=== PATIENT | female | born 1975 | race Caucasian/White ===

== ENCOUNTER 2016-09-25 11:46 | Observation (INO) | payer OTHER ==
[2016-09-25 11:51] VITALS: BMI 47.0
--- NOTE | 2016-09-25 11:56 | PDOC ---
History of Present Illness - General Chief Complaint: Chest Pain Stated Complaint: CHEST PRESSURE Time Seen by Provider: 09/25/16 11:56 History Source: Patient Exam Limitations: No Limitations - History of Present Illness Initial Comments: 41 year old female with history of depression and paroxysmal Afib presenting with palpitations, left sided chest pressure, and shortness of breath that started yesterday while walking around [employer]. She has been worked up over the last few years for chest pain and palpitations with perfusion scans, echos, and regular stress tests that have all returned normal. She recently had a halter monitor placed by Dr. Smalls but he was not available for the patient to obtain the read. This time the chest pain is different because it has some radiation to the neck and shoulder with shortness of breath and lightheadedness. She has had three of these distinct pressure episodes with relief upon rest and exacerbation with movement. Denies nausea, vomiting, diarrhea, urinary symptoms, cough, or fever. Her PCP is Ankur Mariano. 09/25/16 14:09 09/25/16 15:19 Past History - Past Medical History Allergies/Adverse Reactions: Allergies Allergy/AdvReac Type Severity Reaction Status Date / Time Penicillins Allergy Intermediate Rash Verified 09/25/16 11:51 seafood Allergy Intermediate Hives Uncoded 09/25/16 11:51 Home Medications: Ambulatory Orders Paroxetine HCl 25 mg PO DAILY 02/14/15 Aspirin [Aspirin EC] 81 mg PO DAILY 09/25/16 L.acidoph,Paracasei, B.lactis [Probiotic] 1 each PO DAILY 09/25/16 Omeprazole 40 mg PO DAILY 09/25/16 Anemia: No Asthma: No Cancer: No Cardiac Disorders: No CVA: No COPD: No CHF: No Dementia: No Diabetes: No GI Disorders: No Disorders: No HTN: No Hypercholesterolemia: No Liver Disease: No Psychiatric Problems: Yes (DEPRESSION) Seizures: No Thyroid Disease: No - Surgical History Abdominal Surgery: Yes (HIATAL HERNIA) Cholecystectomy: Yes - Immunization History Immunization Up to Date: Yes - Psycho/Social/Smoking Cessation Hx Anxiety: No Suicidal Ideation: No Smoking Status: No Smoking History: Never smoked Have you smoked in the past 12 months: No Number of Cigarettes Smoked Daily: 0 Cigars Per Day: 0 Information on smoking cessation initiated: No Hx Alcohol Use: No Drug/Substance Use Hx: No Substance Use Type: None Hx Substance Use Treatment: No Review of Systems - Review of Systems Constitutional: No: Chills, Diaphoresis, Fever, Loss of Appetite HEENTM: No: Blurred Vision, Recent change in vision Respiratory: Yes: Shortness of Breath, SOB with Exertion. No: Cough, Orthopnea , SOB at Rest, Wheezing, Productive cough Cardiac (ROS): Yes: Chest Pain, Irregular Heart Rate, Lightheadedness, Palpitations. No: Edema, Syncope, Chest Tightness ABD/GI: No: Abdominal Distended, Constipated, Diarrhea, Nausea : No: Burning, Dysuria, Discharge Neurological: No: Headache, Numbness, Paresthesia *Physical Exam - Vital Signs Last Vital Signs Temp Pulse Resp BP Pulse Ox 98.2 F 92 H 18 143/76 96 09/25/16 11:47 09/25/16 11:47 09/25/16 11:47 09/25/16 11:47 09/25/16 11:47 - Physical Exam General Appearance: Yes: Nourished, Appropriately Dressed. No: Apparent Distress HEENT: positive: EOMI, JE, Normal ENT Inspection, Normal Voice. negative: Pharyngeal Erythema, Tonsillar Exudate, Tonsillar Erythema, Nasal Congestion, Rhinorrhea Neck: positive: Trachea midline, Normal Thyroid, Supple. negative: Tender, Rigid Respiratory/Chest: positive: Lungs Clear, Normal Breath Sounds. negative: Chest Tender, Respiratory Distress, Accessory Muscle Use Cardiovascular: positive: Regular Rhythm, Regular Rate, S1, S2. negative: Edema , JVD, Murmur Gastrointestinal/Abdominal: positive: Normal Bowel Sounds, Flat, Soft. negative : Tender, Organomegaly Rectal Exam: positive: deferred Extremity: positive: Normal Range of Motion. negative: Tender Integumentary: positive: Normal Color Neurologic: positive: Fully Oriented, Alert, Normal Mood/Affect ED Treatment Course - LABORATORY CBC & Chemistry Diagram: 09/25/16 13:00 09/25/16 13:00 Medical Decision Making - Medical Decision Making 41 year old with convincing cardiac story of angina vs. ACS but with previous history negative although the current symptoms are slightly different than previous. Will obtain CXR, troponin, EKG, CMP, CBC and give Aspirin as patient will most likely need admission for [facility] at this point. 09/25/16 14:18 09/25/16 15:19 All labs returned WNL and CXR without pathology but will admit for further Troponin rule out and potential LHC given story convincing for Angina (most likely stable, but possibly unstable). 09/25/16 16:29 *DC/Admit/Observation/Transfer Diagnosis at time of Disposition: Chest pain - Discharge Dispostion Admit: Yes - Attestations Physician Attestion: I, Dr. Adrianna Pacheco, attest that this document has been prepared under my direction and personally reviewed by me in its entirety. I further attest, that it accurately reflects all work, treatment, procedures and medical decision -making performed by me. 09/25/16 16:32
[2016-09-25] MEDS ORDERED: ASPIRIN 81 MG CHEWABLE TABLETS PO ONE (13:16)
[2016-09-25] MEDS ORDERED: ASPIRIN 81 MG CHEWABLE TABLETS ONE (13:25)
[2016-09-25 13:26] LABS: BASOPHIL 0.7 % (0-2.0); EOSINOPHIL 1.4 % (0-4.5); MCHC 33.2 g/dl (32.0-36.0); MEAN CELL VOLUME 81.3 fl (80-96); NEUTROPHILS 60.5 % (42.8-82.8); PLATELET COUNT 352 K/MM3 (134-434); RDW 15.3 % (11.6-15.6); WHITE BLOOD COUNT 9.9 K/mm3 (4.0-10.0)
[2016-09-25 13:36] LABS: ALBUMIN 2.9 g/dl (3.4-5.0); ANION GAP 7 (8-16); CALCIUM 8.9 mg/dL (8.5-10.1); CO2 25 mmol/L (21-32); CREATININE 0.7 mg/dL (0.55-1.02); GLUCOSE,RANDOM 91 mg/dL (74-106); SGPT/ALT 33 U/L (12-78)
--- NOTE | 2016-09-25 13:38 | PDOC ---
Attending Attestation - Resident Resident Name: TaraAdrianna - ED Attending Attestation I have performed the following: I have examined & evaluated the patient, The case was reviewed & discussed with the resident, I agree w/resident's findings & plan, Exceptions are as noted - HPI HPI: 09/25/16 13:34 41-year-old female with history of paroxysmal atrial fibrillation, but baseline sinus, morbid obesity presents with 3 episodes since last night of exertional chest pressure and palpitations and shortness of breath relieved with rest. - Physicial Exam PE: 09/25/16 13:35 Afebrile. Heart rate normal. Morbidly obese, otherwise comfortable Heart is regular without murmurs Lungs are clear trace edema bilaterally without calf tenderness - Medical Decision Making 09/25/16 13:35 Patient seen and evaluated with the resident. I agree with the overall evaluation, assessment, and management with the following summary of visit: 41-year-old female presents with exertional chest pain/dyspnea/palpitations since last night. Despite normal stress test earlier this year, presentation is concerning for unstable angina. Rule out other etiology such as anemia or metabolic disarray, lower suspicion for PE. Labs, urinalysis EKG, chest x-ray Aspirin Admission with cardiology consultation Heart Score/ECG Review #1 ECG reviewed & interpreted by me at: 11:56 General ECG Interpretation: Sinus Rhythm, Normal Rate (91), Normal Intervals ( qtc 445), No acute ischemic changes (unchanged Q in III)
--- NOTE | 2016-09-25 13:38 | EKG ---
Test Reason : Blood Pressure : / mmHG Vent. Rate : 091 BPM Atrial Rate : 091 BPM P-R Int : 168 ms QRS Dur : 084 ms QT Int : 362 ms P-R-T Axes : 058 034 033 degrees QTc Int : 445 ms NORMAL SINUS RHYTHM Q WAVES IN II III aVF,LESS THAN 0.[address] OF [address] SEGMENTS SLOW R WAVE PROGRESSION V1-V3 WHEN COMPARED WITH ECG OF 15-FEB-2015 10:59, DECREASE R WAVE VOLTAGE IN V3 CORELATE CLINICALLY Confirmed by MARY FERRER MD ([id number]) on 09/25/2016 1:38:07 PM Referred By: Confirmed By:MARY FERRER MD
[2016-09-25 13:39] LABS: ALK PHOS 81 U/L (45-117); BILIRUBIN,TOTAL 0.3 mg/dL (0.2-1.0); TOT PROT 7.2 g/dl (6.4-8.2); TROPONIN I < 0.02 ng/ml (0.00-0.05)
[2016-09-25 13:41] LABS: SGOT/AST 34 U/L (15-37)
[2016-09-25 22:04] LABS: TROPONIN I < 0.02 ng/ml (0.00-0.05)
[2016-09-26] MEDS ORDERED: ACETAMINOPHEN 325 MG TABLET (FP) PO PRN (02:06)
--- NOTE | 2016-09-26 08:20 | CON.CARD ---
Consult Consult Specialty:: Cardiology Referred by:: Dr. Loza Reason for Consultation:: chest pain and palpitations - History of Present Illness Chief Complaint: Chest pain History of Present Illness: 41 F office patient of ours since 2014 when she was diagnosed with PAF, completed course of AC and has been in NSR. Complains of 2 days of intermittent palpitations and episode SSCP (pressure) that occurred yesterday morning, lasted for about 15 minutes and provoked anxiety and SOB. Different than her GERD symptoms. No cough, fever, chills. No edema or leg pain. No PND, syncope. No recent travel. Thus far, tele NSR; ECG without change since 2014. Cardiac enzymes normal x 2; CXR ok. Recent treadmill stress and echo 06/2016 in office normal in prep for possible bariatric surgery. 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: Alzheimer's, CVA, Dementia, Migraine, Multiple Sclerosis, Peripheral Neuropathy, Parkinson's, Seizure, Syncope, TIA, Vertigo, Other Cardio/Vascular: Yes: AFIB (paroxysmal) Pulmonary: No: Asthma, Bronchitis, Cancer, COPD, O2 Dependent, Pneumonia, Previously Intubated, Pulmonary Embolus, Pulmonary Fibrosis, Sleep Apnea, Other Gastrointestinal: Yes: GERD (hiatal hernia) Hepatobiliary: No: Cirrhosis, Cholelithiasis, Cholecystitis, Choledocholithiasis , Hepatitis A, Hepatitis B, Hepatitis C, Other Renal/: No: Renal Failure, Renal Inusuff, BPH, Cancer, Hematuria, Hemodialysis , Neurogenic Bladder, Renal Calculi, UTI, Other Reproductive: No: Ectopic , Endometriosis, Fibroids, PID, Polycystic Ovary Syndrome, Postmenopausal, Other ...LMP: 09/14/16 ...: No Psych: Yes: Depression Musculoskeletal: No: Bursitis, Chronic low back pain, Hemiparesis, Hemiplegia, Osteoarthritis, Paraplegia, Other Rheumatology: No: Fibromyalgia, Gout, Lupus, Rheumatoid Arthritis, Sarcoidosis, Vasculitis, Other ENT: No: Allergic Rhinitis, Sinusitis, Other Endocrine: No: [place]'s Disease, [place]'s Disease, Diabetes Insipidus, Diabetes Mellitus, Hyperparathyroidism, Hyperthyroidism, Hypothyroidism, Osteopenia, SIADH, Other Dermatology: No: Basal Cell, Cellulitis, Eczema, Melanoma, Psoriasis, Squamous Cell, Other - Past Surgical History Past Surgical History: Yes: Cholecystectomy, - Alcohol/Substance Use Hx Alcohol Use: No - Smoking History Smoking history: Never smoked Have you smoked in the past 12 months: No Aproximately how many cigarettes per day: 0 - Social History ADL: Independent History of Recent Travel: No Home Medications - Allergies Allergies/Adverse Reactions: Allergies Allergy/AdvReac Type Severity Reaction Status Date / Time Penicillins Allergy Intermediate Rash Verified 09/25/16 11:51 seafood Allergy Intermediate Hives Uncoded 09/25/16 11:51 - Home Medications Home Medications: Ambulatory Orders Paroxetine HCl 25 mg PO DAILY 02/14/15 Aspirin [Aspirin EC] 81 mg PO DAILY 09/25/16 L.acidoph,Paracasei, B.lactis [Probiotic] 1 each PO DAILY 09/25/16 Omeprazole 40 mg PO DAILY 09/25/16 Family Disease History - Family Disease History Family Disease History: Heart Disease: Father (CAD and AF) Review of Systems Findings/Remarks: see HPI - Review of Systems Constitutional: reports: No Symptoms Eyes: reports: No Symptoms HENT: reports: No Symptoms Neck: reports: No Symptoms Cardiovascular: reports: Chest Pain, Palpitations Respiratory: reports: Other (chronic ARROYO) Gastrointestinal: denies: No Symptoms, Abdominal Pain, Bloating, Constipation, Diarrhea, Dysphagia, Indigestion, Melena, Nausea, Rectal Bleeding, Vomiting, Vomiting Blood, Other Genitourinary: denies: No Symptoms, Burning, Discharge, Dysuria, Flank Pain, Frequency, Hematuria, Incontinence, Lesions, Menses, Pain, Testicular Mass, Testicular Pain, Testicular Swelling, Urgency, Vaginal Bleeding, Other Breasts: denies: No Symptoms Reported, See HPI, Breast Implants, Discharge from Nipple, Lumps, Pain, Skin Changes, Other Musculoskeletal: denies: No Symptoms, Back Pain, Crepitus, Decreased ROM, Extremity Pain, Joint Pain, Joint Swelling, Muscle Pain, Muscle Cramps, Muscle Weakness, Other Neurological: denies: No Symptoms, Change in LOC, Change in Speech, Confusion, Dizziness, Headache, Incoordination, Numbness, Parasthesia, Pre-Existing Deficit , Seizure, Syncope, Tremors, Unsteady Gait, Weakness, Other Endocrine: denies: No Symptoms, Excessive Sweating, Flushing, Increased Hunger, Increased Thirst, Intolerance to Cold, Intolerance to Heat, Unexplained Weight Gain, Unexplained Weight Loss, Other Hematology/Lymphatic: denies: No Symptoms, Easily Bruised, Excessive Bleeding, Swollen Glands, Other Psychiatric: denies: No Symptoms, Altered Sleep Pattern, Anxiety, Depression, Hallucinations, Panic, Paranoia, Suicidal, Other - Risk Factors Known Risk Factors: Yes: Physical Inactivity Vital Signs: Vital Signs Temperature 98.1 F 09/26/16 07:53 Pulse Rate 74 09/26/16 07:53 Respiratory Rate 18 09/26/16 07:53 Blood Pressure 105/56 09/26/16 07:53 O2 Sat by Pulse Oximetry (%) 98 09/25/16 23:18 Constitutional: Yes: No Distress, Calm Eyes: Yes: Conjunctiva Clear, EOM Intact HENT: Yes: Atraumatic, Normocephalic Neck: Yes: Supple, Trachea Midline Respiratory: Yes: Regular, CTA Bilaterally Gastrointestinal: Yes: Soft, Abdomen, Obese Cardiovascular: Yes: Regular Rate and Rhythm JVD: No Carotid Bruit: No PMI: Non-Displaced Heart Sounds: Yes: S1, S2 (no murmurs) Musculoskeletal: Yes: WNL Extremities: Yes: WNL Edema: No (negative Suri's b/l) Peripheral Pulses WNL: Yes Integumentary: Yes: WNL Neurological: Yes: WNL, Alert, Oriented ...Motor Strength: WNL Psychiatric: Yes: WNL, Alert, Oriented - Other Data Labs, Other Data: Laboratory Tests 09/25/16 09/25/16 09/25/16 13:00 13:00 21:26 WBC 9.9 Hct 38.3 Plt Count 352 Potassium 4.6 Creatinine 0.7 D Creatine Kinase 76 39 Troponin I < 0.02 < 0.02 NSR 91bpm, Poor R wave progression Inferior Qs, unchanged from 2015 Echo: Report Reviewed (2017 office, normal) Ejection Fraction %: LVEF > or = 40 % Imaging - Results Chest X-ray: Image Reviewed EKG: Image Reviewed Problem List - Problems (1) Chest pain Code(s): R07.9 - CHEST PAIN, UNSPECIFIED Qualifiers: Chest pain type: unspecified Qualified Code(s): R07.9 - Chest pain, unspecified (2) GERD (gastroesophageal reflux disease) Code(s): K21.9 - GASTRO-ESOPHAGEAL REFLUX DISEASE WITHOUT ESOPHAGITIS Qualifiers: Esophagitis presence: without esophagitis Qualified Code(s): K21.9 - Gastro-esophageal reflux disease without esophagitis (3) Palpitation Code(s): R00.2 - PALPITATIONS (4) Paroxysmal a-fib Code(s): I48.0 - PAROXYSMAL ATRIAL FIBRILLATION Assessment/Plan IMP: Atypical chest pain and palpitations in patient with PAF and low CHADS2-Vasc score Obesity Family history of CAD REC: Continue telemetry through this evening to assess for recurrent AF Echo to rule out pericardial disease, assess PA pressure Plan stress MIBI this morning. If stress test WNL and tele unremarkable, acceptable for discharge later today on ASA with plan to f/u with Dr. Cuellar next week.
[2016-09-26 09:17] LABS: TROPONIN I < 0.02 ng/ml (0.00-0.05)
[2016-09-26] MEDS ORDERED: PARoxetine HCL 20 MG TABLET (FP) PO SCH (10:00)
[2016-09-26] MEDS ORDERED: ASPIRIN COATED 81 MG TABLET.EC PO SCH (10:00)
[2016-09-26] MEDS ORDERED: PANTOPRAZOLE 40 MG TABLET (FP) PO SCH (10:00)
[2016-09-26] MEDS ORDERED: HEPARIN NA (PORCINE) 5,000 UNITS/ML 1ML VIAL SQ SCH (10:00)
[2016-09-26 14:22] VITALS: BP 130/72; PULSE 79; TEMP 98.2
--- NOTE | 2016-09-26 16:34 | HP ---
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: Alzheimer's, CVA, Dementia, Migraine, Multiple Sclerosis, Peripheral Neuropathy, Parkinson's, Seizure, Syncope, TIA, Vertigo, Other Cardiovascular: Yes: AFIB (paroxysmal) Pulmonary: No: Asthma, Bronchitis, Cancer, COPD, O2 Dependent, Pneumonia, Previously Intubated, Pulmonary Embolus, Pulmonary Fibrosis, Sleep Apnea, Other Gastrointestinal: Yes: GERD (hiatal hernia) Hepatobiliary: No: Cirrhosis, Cholelithiasis, Cholecystitis, Choledocholithiasis , Hepatitis A, Hepatitis B, Hepatitis C, Other Renal/: No: Renal Failure, Renal Inusuff, BPH, Cancer, Hematuria, Hemodialysis , Neurogenic Bladder, Renal Calculi, UTI, Other ...LMP: 09/14/16 ...: No Psych: Yes: Depression Musculoskeletal: No: Bursitis, Chronic low back pain, Hemiparesis, Hemiplegia, Osteoarthritis, Paraplegia, Other Rheumatology: No: Fibromyalgia, Gout, Lupus, Rheumatoid Arthritis, Sarcoidosis, Vasculitis, Other ENT: No: Allergic Rhinitis, Sinusitis, Other Endocrine: No: [place]'s Disease, [place]'s Disease, Diabetes Insipidus, Diabetes Mellitus, Hyperparathyroidism, Hyperthyroidism, Hypothyroidism, Osteopenia, SIADH, Other Dermatology: No: Basal Cell, Cellulitis, Eczema, Melanoma, Psoriasis, Squamous Cell, Other - Past Surgical History Past Surgical History: Yes: Cholecystectomy, - Smoking History Smoking history: Never smoked Have you smoked in the past 12 months: No Aproximately how many cigarettes per day: 0 - Alcohol/Substance Use Hx Alcohol Use: No - Social History ADL: Independent History of Recent Travel: No Home Medications - Allergies Allergies/Adverse Reactions: Allergies Allergy/AdvReac Type Severity Reaction Status Date / Time Penicillins Allergy Intermediate Rash Verified 09/25/16 11:51 seafood Allergy Intermediate Hives Uncoded 09/25/16 11:51 - Home Medications Home Medications: Ambulatory Orders Paroxetine HCl 25 mg PO DAILY 02/14/15 Aspirin [Aspirin EC] 81 mg PO DAILY 09/25/16 L.acidoph,Paracasei, B.lactis [Probiotic] 1 each PO DAILY 09/25/16 Omeprazole 40 mg PO DAILY 09/25/16 Family Disease History - Family Disease History Family Disease History: Heart Disease: Father (CAD and AF) Physical Examination Vital Signs: Vital Signs Temperature 98.2 F 07/26/17 14:21 Pulse Rate 79 09/26/16 14:21 Respiratory Rate 18 09/26/16 14:21 Blood Pressure 130/72 09/26/16 14:21 O2 Sat by Pulse Oximetry (%) 99 09/26/16 08:00
--- NOTE | 2016-10-02 13:41 | EKG ---
Test Reason : Blood Pressure : / mmHG Vent. Rate : 093 BPM Atrial Rate : 093 BPM P-R Int : 160 ms QRS Dur : 086 ms QT Int : 352 ms P-R-T Axes : 044 051 046 degrees QTc Int : 437 ms NORMAL SINUS RHYTHM CANNOT RULE OUT INFERIOR INFARCT (CITED ON OR BEFORE 25-SEP-2016) SLOW R WAVE PROGRESSION V1-V3 ABNORMAL ECG WHEN COMPARED WITH ECG OF 25-SEP-2016 11:56, NO MAJOR CHANGES SEEN CLINICAL CORRELATION IS RECOMMENDED Confirmed by MARY FERRER MD ([id number]) on 10/02/2016 1:41:07 PM Referred By: Confirmed By:MARY FERRER MD
== END 2016-09-26 17:20 | disposition home or self-care (01) ==
LOC: JER 11:46 → UNDOADMOB 16:21 → JERBED 16:21 → J4W 23:01 → JERBED 23:01 → OBSVTOIN 09-26 02:03 → J4W 09-26 02:03 → INTOOBSV 09-26 02:03 → JERBED 09-26 02:03
PROVIDERS: ADMIT Internal Medicine; ATTEND Internal Medicine
PROC: 3E013GC Introduction of Other Therapeutic Substance into Subcutaneous Tissue, Percutaneous Approach (ICD-10-PCS; principal; 2016-09-26)
DX: R07.9 Chest pain, unspecified (principal); I48.0 Paroxysmal atrial fibrillation; K21.9 Gastro-esophageal reflux disease without esophagitis; R00.2 Palpitations; F32.9 Major depressive disorder, single episode, unspecified; E66.01 Morbid (severe) obesity due to excess calories; Z68.42 Body mass index [BMI] 45.0-49.9, adult; Z88.0 Allergy status to penicillin; Z91.013 Allergy to seafood; Z79.82 Long term (current) use of aspirin
CPT/HCPCS: 36415; 71010-TC; 76705-TC; 78452-TC; 80053; 82550; 84484; 84703; 85025; 93005; 93010; 93017; 93306-TC; 99285-25; A9502; G0378; J1644

== ENCOUNTER → 2016-10-25 | Day surgery (SDC) | payer OTHER ==
[2016-10-24 11:27] VITALS: BMI 45.4
[~2016-10-25] MED LIST: LIDOCAINE HCL 1%, 10 MG/ML (20ML VIAL) ONE; LIDOCAINE HCL 2% (50ML VIAL) INF ONE; LIDOCAINE HCL/PF 2% SDV 5ML VIAL ONE
[2016-10-25 06:41] VITALS: TEMP 98.7
--- NOTE | 2016-10-25 08:20 | OP ---
Operative Note - Note: Operative Date: 10/25/16 Pre-Operative Diagnosis: palpitations Operation: implantable loop recorder implant Implants: medtronic linq implantable loop recorder Surgeon: Titi Lomeli V Anesthesia: Local Estimated Blood Loss (mls): 1 Operative Report Dictated: Yes
[2016-10-25 08:59] VITALS: BP 131/76; PULSE 68
--- NOTE | 2016-10-27 11:07 | OP ---
DATE OF OPERATION: 10/25/2016 PROCEDURE: Implantable loop recorder implant. SURGEON: Donell Lomeli MD COMPLICATIONS: None. BLOOD LOSS: Minimal. INDICATION: This is a 41-year-old female with past medical history of paroxysmal atrial fibrillation, BAM on CPAP, with palpitations and negative workup, unable to tolerate patch monitoring due to skin allergies, here for an implantable loop recorder implantation for further monitoring. The patient met standard criteria for implantation of implantable loop recorder for further monitoring of recurrent palpitations. Informed consent was obtained, and adequate time for questions and answers was offered to the patient prior to the procedure. DESCRIPTION OF PROCEDURE: The left infraclavicular and anterior chest region were prepped and broadly draped. Local anesthesia was administered. Following the administration of local anesthesia, an incision was made at the fourth intercostal space in the left chest area. Using the implantable loop recorder tools, the [employer] LINQ serial number [id number] was successfully implanted in the left anterior chest region in the fourth intercostal space in a horizontal direction. Proper sensing function of the device was confirmed at 0.44 mV. The incision was then closed using absorbable sutures and Dermabond. A sterile bandage was also applied. The patient was then transported to the post-procedure monitoring area for additional observation. DONELL LOMELI M.D. [id number] cc: Aryan Cuellar MD
== END | disposition home or self-care (01) ==
LOC: JASU-SURG 06:10
PROVIDERS: ATTEND Internal Medicine
PROC: 0JH602Z Insertion of Monitoring Device into Chest Subcutaneous Tissue and Fascia, Open Approach (ICD-10-PCS; principal; 2016-10-25 07:30)
DX: R00.2 Palpitations (principal)

== ENCOUNTER 2017-03-14 16:51 | Emergency (ER) | payer OTHER ==
[2017-03-14 17:20] VITALS: BP 137/74; PULSE 89; TEMP 99.1; BMI 43.8
--- NOTE | 2017-03-14 18:51 | PDOC ---
History of Present Illness - General History Source: Patient Exam Limitations: No Limitations - History of Present Illness Initial Comments: 03/14/17 19:04 Chief Complaint: Cough History of Present Illness: The patient is a 41 year old female presents to the ER with complaints of worsening cough since Saturday. She states that the cough is non-productive and is associated with some chest pain and mild shortness of breath. She complains of a post nasal drip as well. She states her pain is worsened with deep inspiration. She also complains of a post nasal drip. The patient adds that on Saturday she was having severe abdominal cramping that persisted for a few days but has since gone away. Review of Systems: Patient denies any associated symptoms including fever, but reports chills and body aches. She denies any nausea, vomiting, diarrhea. She denies any palpitations currently. She denies any urinary symptoms. Past Medical History: She is under investigation for a suspected heart condition. States she has a chip implantation done in December to monitor her heart. Also has GERD. Social/Family History: Denies drugs, alcohol, or tobacco. Fully active without disability. Physical Exam: Alert and cooperative, in no distress. Denied any pain or other symptoms at present. PEERLA and fundus optic exam was negative. ENT clear. Neck supple without mass. Lungs clear to PNA despite mild cough, full breath sounds bilaterally, no wheezes, rales or rhonchi. Cardiac controlled rate and regular rhythm. No murmurs rubs or gallops, pulses full and symmetric. Abdomen was soft and nontender without rebound or guarding. No organomegaly or masses. Neurologically intact. cranial nerves 2-12 in tact, no focal deficits, numbness or weakness <Debbie Paulino - Last Filed: 03/14/17 19:04> <Parag Laura - Last Filed: 03/15/17 09:09> - General Chief Complaint: Respiratory Stated Complaint: COUGH X 1 WEEK Time Seen by Provider: 03/14/17 18:06 Past History <Debbie Paulino - Last Filed: 03/14/17 19:04> - Past Medical History Anemia: No Asthma: No Cancer: No Cardiac Disorders: Yes (PAF, IMPLANTED LOOP RECORDER HEART MONITOR) CVA: No COPD: No CHF: No Dementia: No Diabetes: No GI Disorders: No Disorders: No HTN: No Hypercholesterolemia: No Liver Disease: No Psychiatric Problems: Yes (DEPRESSION) Seizures: No Thyroid Disease: No - Surgical History Abdominal Surgery: Yes (HIATAL HERNIA) Appendectomy: No Cardiac Surgery: No Cholecystectomy: Yes Lung Surgery: No Neurologic Surgery: No Orthopedic Surgery: No - Immunization History Immunization Up to Date: Yes - Suicide/Smoking/Psychosocial Hx Smoking Status: No Smoking History: Never smoked Have you smoked in the past 12 months: No Number of Cigarettes Smoked Daily: 0 Cigars Per Day: 0 Hx Alcohol Use: No Drug/Substance Use Hx: No Substance Use Type: None Hx Substance Use Treatment: No <Parag Laura - Last Filed: 03/15/17 09:09> - Past Medical History Allergies/Adverse Reactions: Allergies Allergy/AdvReac Type Severity Reaction Status Date / Time Penicillins Allergy Intermediate Rash Verified 10/25/16 06:27 seafood Allergy Intermediate Hives Uncoded 10/25/16 06:27 Home Medications: Ambulatory Orders Paroxetine HCl 30 mg PO DAILY 02/14/15 L.acidoph,Paracasei, B.lactis [Probiotic] 1 each PO DAILY 09/25/16 Guaifenesin AC [Robitussin-AC] 1 - 2 tsp PO Q4HWA PRN #120 ml MDD 8 03/14/17 Oseltamivir Phosphate [Tamiflu] 75 mg PO BID #10 capsule 03/14/17 Review of Systems - Review of Systems Able to Perform ROS?: Yes All Other Systems: Reviewed and Negative <Debbie Paulino - Last Filed: 03/14/17 19:04> *Physical Exam - Vital Signs Last Vital Signs Temp Pulse Resp BP Pulse Ox 99.1 F 89 16 137/74 98 03/14/17 16:58 03/14/17 16:58 03/14/17 16:58 03/14/17 16:58 03/14/17 16:58 <Debbie Paulino - Last Filed: 03/14/17 19:04> - Vital Signs Last Vital Signs Temp Pulse Resp BP Pulse Ox 99.1 F 89 16 137/74 98 03/14/17 16:58 03/14/17 16:58 03/14/17 16:58 03/14/17 16:58 03/14/17 16:58 <Parag Laura - Last Filed: 03/15/17 09:09> Medical Decision Making - Medical Decision Making 03/15/17 09:09 Patient with flulike symptoms, does not appear acutely ill. No respiratory distress, tachypnea, or dyspnea. Symptomatic treatment and follow-up as recommended <Parag Laura - Last Filed: 03/15/17 09:09> *DC/Admit/Observation/Transfer - Attestations Scribe Attestion: 03/14/17 19:05 Documentation prepared by Debbie Paulino, acting as phlebotomist medical lab assistant for Parag El MD. <Debbie Paulino - Last Filed: 03/14/17 19:04> - Discharge Dispostion Admit: No <Parag Laura - Last Filed: 03/15/17 09:09> Diagnosis at time of Disposition: Viral syndrome - Discharge Dispostion Disposition: HOME Condition at time of disposition: - Prescriptions Prescriptions: Guaifenesin AC [Robitussin-AC] 1 - 2 tsp PO Q4HWA PRN #120 ml MDD 8 PRN Reason: Cough Oseltamivir Phosphate [Tamiflu] 75 mg PO BID #10 capsule - Referrals Referrals: Ankur Mariano MD [Primary Care Provider] - 3 days - Patient Instructions Printed Discharge Instructions: DI for Acute Bronchitis - Post Discharge Activity Forms/Work/School Notes: Back to Work
== END 2017-03-14 18:58 | disposition home or self-care (01) ==
LOC: FER 16:51
DX: B34.9 Viral infection, unspecified (principal); I51.9 Heart disease, unspecified; F32.9 Major depressive disorder, single episode, unspecified
CPT/HCPCS: 99281-25

== ENCOUNTER 2017-09-12 09:04 | Emergency (ER) | payer OTHER ==
[2017-09-12 09:21] VITALS: BP 129/80; PULSE 75; TEMP 98.3; BMI 43.8
[2017-09-12] MEDS ORDERED: TETANUS AND DIPHTHERIA TOXOID 0.5 ML DISP.SYRIN IM ONE (09:54)
--- NOTE | 2017-09-12 09:55 | PDOC ---
History of Present Illness - General Chief Complaint: Injury Stated Complaint: INJURY, NOSE BLEEDING Time Seen by Provider: 09/12/17 09:47 History Source: Patient, Parent(s) Exam Limitations: Clinical Condition - History of Present Illness Initial Comments: 09/12/17 09:55 Patient with no sig PMhx present with complains of laceration to bridge of nose and swelling under right eye after hitting herself with a door and glass shelve falling on her face cutting her nose. pt report swelling to nose and feeling that nose might be broken with swelling under right eye where she got hit hard. Denies vision changes, blurry vision, Lost of vision, feeling of foreign object in eye Timing/Duration: 1-3 hours Severity: mild Modifying Factors: improves with: cold therapy Associated Symptoms: reports: denies symptoms. denies: headaches Aspirin Received prior to arrival: Yes: no aspirin today Asa Contraindications(Core Measure): Yes: Allergy Beta Fco Contraindications(Core Measure): Yes: Not Prescribed Past History - Past Medical History Allergies/Adverse Reactions: Allergies Allergy/AdvReac Type Severity Reaction Status Date / Time Penicillins Allergy Intermediate Rash Verified 09/12/17 09:18 seafood Allergy Intermediate Hives Uncoded 09/12/17 09:18 Home Medications: Ambulatory Orders Paroxetine HCl 30 mg PO DAILY 02/14/15 L.acidoph,Paracasei, B.lactis [Probiotic] 1 each PO DAILY 09/25/16 Ibuprofen 800 mg PO TID PRN #20 tablet 09/12/17 Anemia: No Asthma: No Cancer: No Cardiac Disorders: Yes (PAF, IMPLANTED LOOP RECORDER HEART MONITOR) CVA: No COPD: No CHF: No DVT: No Dementia: No Diabetes: No GI Disorders: No Disorders: No HTN: No Hypercholesterolemia: No Liver Disease: No Psychiatric Problems: Yes (DEPRESSION) Seizures: No Thyroid Disease: No - Surgical History Abdominal Surgery: Yes (HIATAL HERNIA) Appendectomy: No Cardiac Surgery: No Cholecystectomy: Yes Lung Surgery: No Neurologic Surgery: No Orthopedic Surgery: No - Immunization History Immunization Up to Date: Yes - Suicide/Smoking/Psychosocial Hx Smoking Status: No Smoking History: Never smoked Have you smoked in the past 12 months: No Number of Cigarettes Smoked Daily: 0 Cigars Per Day: 0 Information on smoking cessation initiated: No Hx Alcohol Use: No Drug/Substance Use Hx: No Substance Use Type: None Hx Substance Use Treatment: No Review of Systems - Review of Systems Is the patient limited Urdu proficient: No Constitutional: No: Chills, Diaphoresis, Fever, Loss of Appetite, Malaise, Night Sweats, Weakness, Weight Stable, Unintentional Wgt. Loss, Unexplained wgt Loss, Other HEENTM: Yes: Nose Pain (nose pain over laceration and bridge of nose and right side of nose), Nose Bleeding (from laceration and facial contusion). No: Eye Pain, Blurred Vision, Tearing, Recent change in vision, Double Vision, Cataracts , Ear Pain, Ocular Prothesis, Ear Discharge, Nose Congestion, Tinnitus, Hearing Loss, Throat Pain, Throat Swelling, Mouth Pain, Dental Problems, Difficulty Swallowing, Mouth Swelling, Other Respiratory: No: Cough, Orthopnea, Shortness of Breath, SOB with Exertion, SOB at Rest, Stridor, Wheezing, Productive cough, Hemoptysis, Other Cardiac (ROS): No: See HPI, Chest Pain, Edema, Irregular Heart Rate, Lightheadedness, Palpitations, Syncope, Chest Tightness, Other ABD/GI: No: Abdominal Distended, Abd. Pain w/ defecation, Blood Streaked Bowels , Constipated, Diarrhea, Difficulty Swallowing, Nausea, Poor Appetite, Poor Fluid Intake, Rectal Bleeding, Vomiting, Indigestion, Abdominal cramping, Tarry Stools, Other : No: Burning, Dysuria, Discharge, Frequency, Flank Pain, Hematuria, Incontinence, Pain, Urgency, Testicular Mass, Testicular Swelling, Lesions, Testicular Pain, Other Musculoskeletal: Yes: Muscle Pain (bridge of nose). No: Back Pain, Gout, Joint Pain, Joint Swelling, Muscle Weakness, Neck Pain, Joint Stiffness, Other Integumentary: Yes: Erythema (bridge of nose). No: Bruising, Change in Color, Change in Hair/Nails, Dryness, Flushing, Lesions, Lumps, Pallor, Pruritus, Rash , Sweating, Other Neurological: No: Headache, Numbness, Paresthesia, Pre-Existing Deficit, Seizure , Tingling, Tremors, Weakness, Unsteady Gait, Ataxia, Dizziness, Other Psychiatric: No: Anxiety, Depression, Frequent Crying, Stressors, Sleep Pattern Change, Emotional Problems, Mood Swings, Change in Appetite, Other Endocrine: No: Excessive Sweating, Flushing, Intolerance to Cold, Intolerance to Heat, Increased Hunger, Increased Thirst, Increased Urine, Unexplained Weight Gain, Unexplained Weight Loss, Change in Weight, Other Hematologic/Lymphatic: No: Anemia, Blood Clots, Easy Bleeding, Easy Bruising, Bleeding Diathesis, Lymph Node Abnormalities, Swollen Glands, Other *Physical Exam - Vital Signs Last Vital Signs Temp Pulse Resp BP Pulse Ox 98.3 F 75 16 129/80 99 09/12/17 09:18 09/12/17 09:18 09/12/17 09:18 09/12/17 09:18 09/12/17 09:18 - Physical Exam General Appearance: Yes: Nourished, Appropriately Dressed. No: Apparent Distress HEENT: positive: EOMI, JE, Normal ENT Inspection (no acute bleeding from nostrils), Normal Voice, TMs Normal, Pharynx Normal, Orbits (mild swelling under right eye. EOMI b/l), Other (1cm superficial laceration with mild bleeding to bridge of nose) Neck: positive: Trachea midline, Supple Respiratory/Chest: positive: Lungs Clear, Normal Breath Sounds. negative: Chest Tender, Respiratory Distress Cardiovascular: positive: Regular Rhythm, Regular Rate Gastrointestinal/Abdominal: positive: Normal Bowel Sounds Musculoskeletal: positive: Other (mild swelling under right lower eyelid. mild tenderness over bridge of nose) Extremity: positive: Swelling (mild swelling under right eye), Other (1cm superficial laceration to bridge of nose with minimal bleeding) Integumentary: positive: Swelling (mild swelling under right lower eyelid), Other (1cm superficial laceration with minimal bleeding to bridge of nose) Neurologic: positive: Fully Oriented, Normal Mood/Affect, Normal Response Medical Decision Making - Medical Decision Making 09/12/17 10:06 Patient presenting with swelling under right eye with laceration to bridge of nose s/p facial contusion. no evidence of orbital fracture on exam. symptoms likely facial contusion with laceration. laceration closed with dermabond. tetanus vaccine ordered. facial x-rays ordered to r/o fracture. reassess after imaging 09/12/17 11:06 facial x-rays shows no acute fracture of facial bones. pt stable for home discharge with ophthalmology follow-up *DC/Admit/Observation/Transfer Diagnosis at time of Disposition: Facial contusion Qualifiers: Encounter type: initial encounter Qualified Code(s): S00.83XA - Contusion of other part of head, initial encounter Nasal laceration Qualifiers: Encounter type: initial encounter Qualified Code(s): S01.21XA - Laceration without foreign body of nose, initial encounter - Discharge Dispostion Disposition: HOME Condition at time of disposition: Good Decision to Admit order: No - Prescriptions Prescriptions: Ibuprofen 800 mg PO TID PRN #20 tablet PRN Reason: Pain - Referrals Referrals: Ankur Mariano MD [Primary Care Provider] - Ashanti Lala MD [Staff Physician] - - Patient Instructions Printed Discharge Instructions: DI for Eye Contusion, DI for Contusion Additional Instructions: Take medication as prescribed. follow-up with ophthalmology if swelling persist or change in vision - Post Discharge Activity
== END 2017-09-12 11:15 | disposition home or self-care (01) ==
LOC: JERFT 09:04
PROC: 3E0234Z Introduction of Serum, Toxoid and Vaccine into Muscle, Percutaneous Approach (ICD-10-PCS; principal; 2017-09-12)
PROC: 0HQ1XZZ Repair Face Skin, External Approach (ICD-10-PCS; 2017-09-12)
DX: S01.21XA Laceration without foreign body of nose, initial encounter (principal); S05.11XA Contusion of eyeball and orbital tissues, right eye, initial encounter; W22.8XXA Striking against or struck by other objects, initial encounter; Y93.89 Activity, other specified; Y92.89 Other specified places as the place of occurrence of the external cause; Y99.8 Other external cause status
CPT/HCPCS: 70150-TC-FY; 99281-25

== ENCOUNTER 2017-12-01 13:05 | Emergency (ER) | payer OTHER ==
[2017-12-01 13:24] VITALS: BMI 39.1
--- NOTE | 2017-12-01 13:56 | PDOC ---
History of Present Illness - General History Source: Patient - History of Present Illness Initial Comments: 12/01/17 14:02 42 year old female wtih a h/o arrhythmia (s/p PM placement) presents to ED c/o LUE injury. Patient states she was cooking in the kitchen when she tripped and hit her L arm on a knife that was sitting in a pot on the stove. Placed pressure dressing and presented to ED. Tetanus UTD. Allergy: Penicillin (hives) PMD: Dr. Ankur Mariano <Gaby Alvarado - Last Filed: 12/01/17 16:31> <Sid Miranda - Last Filed: 12/02/17 10:13> - General Chief Complaint: Injury Stated Complaint: LEFT ARM LACERATION Time Seen by Provider: 12/01/17 13:53 Past History - Past Medical History Anemia: No Asthma: No Cancer: No Cardiac Disorders: Yes (PAF, IMPLANTED LOOP RECORDER HEART MONITOR) CVA: No COPD: No CHF: No DVT: No Dementia: No Diabetes: No GI Disorders: No Disorders: No HTN: No Hypercholesterolemia: No Liver Disease: No Psychiatric Problems: Yes (DEPRESSION) Seizures: No Thyroid Disease: No - Surgical History Abdominal Surgery: Yes (HIATAL HERNIA) Appendectomy: No Cardiac Surgery: No Cholecystectomy: Yes Lung Surgery: No Neurologic Surgery: No Orthopedic Surgery: No - Immunization History Immunization Up to Date: Yes - Suicide/Smoking/Psychosocial Hx Smoking Status: No Smoking History: Never smoked Have you smoked in the past 12 months: No Number of Cigarettes Smoked Daily: 0 Cigars Per Day: 0 Hx Alcohol Use: No Drug/Substance Use Hx: No Substance Use Type: None Hx Substance Use Treatment: No <Gaby Alvarado - Last Filed: 12/01/17 16:31> <Sid Miranda - Last Filed: 12/02/17 10:13> - Past Medical History Allergies/Adverse Reactions: Allergies Allergy/AdvReac Type Severity Reaction Status Date / Time Penicillins Allergy Intermediate Rash Verified 12/01/17 13:24 seafood Allergy Intermediate Hives Uncoded 12/01/17 13:24 Home Medications: Ambulatory Orders Paroxetine HCl 30 mg PO DAILY 02/14/15 L.acidoph,Paracasei, B.lactis [Probiotic] 1 each PO DAILY 09/25/16 Review of Systems - Review of Systems Constitutional: No: Chills, Fever Respiratory: No: Cough, Shortness of Breath Cardiac (ROS): No: Chest Pain, Lightheadedness, Palpitations, Syncope ABD/GI: No: Constipated, Diarrhea, Nausea, Vomiting Neurological: No: Paresthesia, Tingling <Gaby Alvarado - Last Filed: 12/01/17 16:31> *Physical Exam - Vital Signs Last Vital Signs Temp Pulse Resp BP Pulse Ox 97 F L 79 18 130/78 99 12/01/17 13:20 12/01/17 13:20 12/01/17 13:20 12/01/17 13:20 12/01/17 13:20 - Physical Exam General Appearance: Yes: Nourished, Appropriately Dressed Neck: positive: Trachea midline, Supple Respiratory/Chest: positive: Lungs Clear. negative: Labored Respiration, Rapid RR Cardiovascular: positive: S1, S2 Extremity: positive: Normal Capillary Refill, Other (L forearm laceration - exposed muscle belly, NVI, tendons intact in R digits) Neurologic: positive: Fully Oriented, Alert <Gaby Alvarado - Last Filed: 12/01/17 16:31> - Vital Signs Last Vital Signs Temp Pulse Resp BP Pulse Ox 97.9 F 62 17 140/79 96 12/01/17 15:56 12/01/17 15:56 12/01/17 15:56 12/01/17 15:56 12/01/17 15:56 <RuthSid - Last Filed: 12/02/17 10:13> Procedures - Consent Consent obtained: Verbal - Laceration/Wound Repair Left Lateral Arm Wound Length: 5.0 to 7.5 cm Wound Explored: clean Wound's Depth, Shape: into muscle Irrigated w/ Saline: Yes Anesthesia: 1% Lidocaine Wound Debrided: minimal Wound Repaired With: Sutures Number of Sutures: 10 Layer Closure: Yes Number of Deep Layer Sutures: 4 Sterile Dressing Applied: Yes Progress: Note:7 cm Laceration anesthesized with cc of 2% lidocaine,thoroughly irrigated under pressure with,total of 4 deep dermal + 10 simple interrupted sutures placed,no complications,no foreign body noted,good hemostasis,good approximation ,pt neurovascularly intact s/p procedure,verbal consent given by pt/family,pt/ family aware of potential for scar formation. Initialized on 12/01/17 15:48 - END OF NOTE <Sid Miranda - Last Filed: 12/02/17 10:13> ED Treatment Course - Medications Given in the ED: ED Medications Discontinued Medications Generic Name Dose Route Start Last Admin Trade Name Lucy PRN Reason Stop Dose Admin Lidocaine HCl 400 mg 12/01/17 14:20 12/01/17 15:14 Xylocaine 2% DT 12/01/17 14:21 400 mg ONCE ONE Administration <Sid Miranda - Last Filed: 12/02/17 10:13> Medical Decision Making - Medical Decision Making 12/01/17 14:03 42 year old female with LUE laceration on ulnar aspect of L distal forearm approximately 7 cm in length - w/penetration in fascia of muscle belly. No ligament/tendon involvement on motor exam. NVI. Tetanus within 1 year. 12/01/17 15:54 Wound closed using 4 deep dermal sutures and 10 simple interrupted sutures. NVI pre and post wound closure. D/c home with return precautions and return to ED in 7 days for wound check and possible suture removal. <Gaby Alvarado - Last Filed: 12/01/17 16:31> *DC/Admit/Observation/Transfer - Discharge Dispostion Decision to Admit order: No <Gaby Alvarado - Last Filed: 12/01/17 16:31> <Sid Miranda - Last Filed: 12/02/17 10:13> Diagnosis at time of Disposition: Laceration - Discharge Dispostion Disposition: HOME Condition at time of disposition: Good - Patient Instructions Printed Discharge Instructions: DI for Laceration Repair Additional Instructions: Please return to the Emergency Department in 7 days for a wound check. Return to the Emergency Department before that time for loose sutures, redness, warmth, or discharge from your wound as well as any new/worsening/concerning symptoms.
[2017-12-01] MEDS ORDERED: LIDOCAINE HCL 2% (20ML MULTI-DOSE VIAL) NR ONE (14:14)
[2017-12-01] MEDS ORDERED: LIDOCAINE HCL 2% (50ML VIAL) DT ONE (14:20)
--- NOTE | 2017-12-01 14:26 | PDOC ---
Attending Attestation - Resident Resident Name: Gaby Alvarado - ED Attending Attestation I have performed the following: I have examined & evaluated the patient, The case was reviewed & discussed with the resident, I agree w/resident's findings & plan, Exceptions are as noted - HPI HPI: 12/01/17 14:23 42y F presents with L arm laceration. The patient states that she lost her balance while she was in the kitchen, reached out to stabilize herself and her left arm struck a knife that was pointing up out of a pot. The patient denies any numbness, tingling, weakness no other injuries, tetanus up-to-date. On exam the patient has a deep laceration in the ulnar aspect of her left distal forearm, it penetrates the fascia of her muscle belly, there is no signs of any ligamentous/tendon involvement on visual inspection, nor on motor evaluation of her fingers, there is no deficits in wrist extension supination, flexion, nor flexion and extension of her fingers which were all tested at each individual joint. Sensation was intact bilaterally. Will close the patient's laceration Tetanus already up-to-date Will give prophylactic antibiotics - Physicial Exam PE: 12/02/17 09:34 see above - Medical Decision Making the pts laceration was closed with good approximation by resident milton pt dc with pmd fu and return for suture removal signs of infetction discussed wit the patient.
[2017-12-01 15:57] VITALS: BP 140/79; PULSE 62; TEMP 97.9
== END 2017-12-01 15:54 | disposition home or self-care (01) ==
LOC: JER 13:05
PROC: 0JQH0ZZ Repair Left Lower Arm Subcutaneous Tissue and Fascia, Open Approach (ICD-10-PCS; principal; 2017-12-01)
DX: S51.812A Laceration without foreign body of left forearm, initial encounter (principal); W26.0XXA Contact with knife, initial encounter; W01.118A Fall on same level from slipping, tripping and stumbling with subsequent striking against other sharp object, initial encounter; Y93.G3 Activity, cooking and baking; Y92.030 Kitchen in apartment as the place of occurrence of the external cause; Y99.8 Other external cause status
CPT/HCPCS: 12032; 99282-25

== ENCOUNTER 2017-12-08 14:08 | Emergency (ER) | payer OTHER ==
[2017-12-08 14:17] VITALS: BP 117/70; PULSE 80; TEMP 97.6; BMI 39.1
--- NOTE | 2017-12-08 14:20 | PDOC ---
Suture Removal/Wound Check HPI - History of Present Illness Chief Complaint: Suture/Staple Removal(Here) Stated Complaint: STICHES REMOVAL LEFT ARM Time Seen by Provider: 12/08/17 14:17 History Source: Yes: Patient Exam Limitations: Yes: No Limitations Treated at: [facility] Date of Last ED visit: 12/01/17 - Previous ED Treatment Type of procedure performed on last visit: Yes: Laceration Repair Tetanus Immunization: Yes: Up to Date Past History - Past Medical History Allergies/Adverse Reactions: Allergies Allergy/AdvReac Type Severity Reaction Status Date / Time Penicillins Allergy Intermediate Rash Verified 12/01/17 13:24 seafood Allergy Intermediate Hives Uncoded 12/01/17 13:24 Home Medications: Ambulatory Orders Paroxetine HCl 30 mg PO DAILY 02/14/15 L.acidoph,Paracasei, B.lactis [Probiotic] 1 each PO DAILY 09/25/16 Anemia: No Asthma: No Cancer: No Cardiac Disorders: Yes (PAF, IMPLANTED LOOP RECORDER HEART MONITOR) CVA: No COPD: No CHF: No DVT: No Dementia: No Diabetes: No GI Disorders: No Disorders: No HTN: No Hypercholesterolemia: No Liver Disease: No Psychiatric Problems: Yes (DEPRESSION) Seizures: No Thyroid Disease: No - Surgical History Abdominal Surgery: Yes (HIATAL HERNIA) Appendectomy: No 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) Cholecystectomy: Yes Lung Surgery: No Neurologic Surgery: No Orthopedic Surgery: No - Immunization History Immunization Up to Date: Yes - Suicide/Smoking/Psychosocial Hx Smoking Status: No Smoking History: Never smoked Have you smoked in the past 12 months: No Number of Cigarettes Smoked Daily: 0 Cigars Per Day: 0 Information on smoking cessation initiated: No Hx Alcohol Use: No Drug/Substance Use Hx: No Substance Use Type: None Hx Substance Use Treatment: No *Physical Exam - Vital Signs Last Vital Signs Temp Pulse Resp BP Pulse Ox 97.6 F 80 20 117/70 100 12/08/17 14:14 12/08/17 14:14 12/08/17 14:14 12/08/17 14:14 12/08/17 14:14 Medical Decision Making - Medical Decision Making A/P: 42 y/o female here for suture removal. 9 sutures removed from left arm without difficulty. Pt admits the 10th stitch fell out on its own. Steri strips were applied. Wound margins well approximated. Patient instructed to keep area clean. The patient verbalizes understanding of all instructions, has no further questions and is awaiting discharge. *DC/Admit/Observation/Transfer Diagnosis at time of Disposition: Encounter for removal of sutures - Discharge Dispostion Disposition: HOME Condition at time of disposition: Good - Referrals - Patient Instructions Printed Discharge Instructions: DI for Suture Removal - Post Discharge Activity
== END 2017-12-08 14:42 | disposition home or self-care (01) ==
LOC: JERFT 14:08
DX: Z48.817 Encounter for surgical aftercare following surgery on the skin and subcutaneous tissue (principal); Z48.02 Encounter for removal of sutures
CPT/HCPCS: 99281-25

== ENCOUNTER 2018-09-16 13:49 | Inpatient (IN) | payer OTHER ==
--- NOTE | 2018-09-16 14:04 | PDOC ---
Rapid Medical Evaluation Chief Complaint: Chest Pain Time Seen by Provider: 09/16/18 13:56 Medical Evaluation: Allergies Allergy/AdvReac Type Severity Reaction Status Date / Time Penicillins Allergy Intermediate Rash Verified 09/16/18 13:56 seafood Allergy Intermediate Hives Uncoded 09/16/18 13:56 09/16/18 13:56 I have performed a brief in-person evaluation of this patient. The patient presents with a chief complaint of:CP w/ palpitations and "feels winded" x 5 days. No diaphoresis, n/v. leg pain or swelling. No obvious RF for DVT. Pt s/p insertable ekg monitor placed by partner of Dr Ojeda in 2017 for palpitations, depression on paxil Pertinent physical exam findings:Stable w/ clear chest/lungs I have ordered the following:ekg/cxr/labs The patient will proceed to the ED for further evaluation. Discharge Disposition - Diagnosis Chest pain Qualifiers: Chest pain type: unspecified Qualified Code(s): R07.9 - Chest pain, unspecified - Referrals - Patient Instructions - Post Discharge Activity
--- NOTE | 2018-09-16 14:40 | EKG ---
Test Reason : Blood Pressure : / mmHG Vent. Rate : 083 BPM Atrial Rate : 083 BPM P-R Int : 142 ms QRS Dur : 082 ms QT Int : 402 ms P-R-T Axes : 048 028 031 degrees QTc Int : 472 ms SINUS RHYTHM CANNOT RULE OUT ANTERIOR INFARCT (CITED ON OR BEFORE 25-SEP-2016) ABNORMAL ECG Confirmed by Kalyan Ac MD ([id number]) on 09/16/2018 2:40:18 PM Referred By: Confirmed By:Kalyan Ac MD
--- NOTE | 2018-09-16 14:41 | PDOC ---
History of Present Illness - General Chief Complaint: Chest Pain Stated Complaint: CHEST PAIN Time Seen by Provider: 09/16/18 13:56 - History of Present Illness Initial Comments: 09/16/18 16:05 HPI: 43 y/o F with hx of paroxysmal Afib s/p implantable loop recorder device in 2017 presenting with 4 days of chest palpitations/fluttering and 2 days of chest pressure. She reports on Saturday and throughout the weekend she felt intermittent fluttering in her chest that did not resolve. For the past 2 days she endorses that she is now having left sided chest pressure with radiation to her posterior left shoulder that she became worried about today because she never had that before. She rates it as a 5/10 and is intermittent in nature. She also endorses lightheadedness, nausea, increased diaphoresis, and lethargy over the weekend. Of note, she reports increased shortness of breath on exertion without any change in her palpitations or chest pressure on exertion. Denies fever, chills, emesis, abd pain, dysuria, diarrhea, constipation. PMHx: as noted above ROS: as noted SHx: Denies Etoh, IVDA, tobacco use Allergies: NKDA Past History - Past Medical History Allergies/Adverse Reactions: Allergies Allergy/AdvReac Type Severity Reaction Status Date / Time Penicillins Allergy Intermediate Rash Verified 09/16/18 13:56 seafood Allergy Intermediate Hives Uncoded 09/16/18 13:56 Home Medications: Ambulatory Orders Paroxetine HCl 30 mg PO DAILY 02/14/15 Anemia: No Asthma: No Cancer: No Cardiac Disorders: Yes (PAF, IMPLANTED LOOP RECORDER HEART MONITOR) CVA: No COPD: No CHF: No DVT: No Dementia: No Diabetes: No GI Disorders: No Disorders: No HTN: No Hypercholesterolemia: No Liver Disease: No Psychiatric Problems: Yes (DEPRESSION) Seizures: No Thyroid Disease: No - Surgical History Abdominal Surgery: Yes (HIATAL HERNIA) Appendectomy: No Cardiac Surgery: Yes (internal school lunch monitor) Cholecystectomy: Yes Lung Surgery: No Neurologic Surgery: No Orthopedic Surgery: No - Immunization History Immunization Up to Date: Yes - Suicide/Smoking/Psychosocial Hx Smoking Status: No Smoking History: Never smoked Have you smoked in the past 12 months: No Number of Cigarettes Smoked Daily: 0 Cigars Per Day: 0 Information on smoking cessation initiated: No Hx Alcohol Use: No Drug/Substance Use Hx: No Substance Use Type: None Hx Substance Use Treatment: No Review of Systems - Review of Systems Comments:: 09/16/18 17:01 GENERAL/CONSTITUTIONAL: No fever or chills. No weakness. HEAD, EYES, EARS, NOSE AND THROAT: No change in vision. No ear pain or discharge. No sore throat. CARDIOVASCULAR: +palpitations, chest pressure, and [place] RESPIRATORY: No cough, wheezing, or hemoptysis. GASTROINTESTINAL: + nausea; no vomiting, diarrhea or constipation. GENITOURINARY: No dysuria, frequency, or change in urination. MUSCULOSKELETAL: No joint or muscle swelling or pain. No neck or back pain. SKIN: No rash NEUROLOGIC: No headache, vertigo, loss of consciousness, or change in strength/ sensation. ENDOCRINE: No increased thirst. No abnormal weight change HEMATOLOGIC/LYMPHATIC: No anemia, easy bleeding, or history of blood clots. ALLERGIC/IMMUNOLOGIC: No hives or skin allergy. *Physical Exam - Vital Signs Last Vital Signs Temp Pulse Resp BP Pulse Ox 97.5 F L 80 16 139/85 98 09/16/18 13:56 09/16/18 13:56 09/16/18 13:56 09/16/18 13:56 09/16/18 13:56 - Physical Exam Comments: 09/16/18 17:04 GENERAL: Awake, alert, and fully oriented, in no acute distress HEAD: No signs of trauma, normocephalic, atraumatic EYES: PERRLA, EOMI, sclera anicteric, conjunctiva clear ENT: Auricles normal inspection, hearing grossly normal, nares patent, oropharynx clear without exudates. Moist mucosa NECK: Normal ROM, supple, no lymphadenopathy, JVD, or masses LUNGS: No distress, speaks full sentences, clear to auscultation bilaterally HEART: Regular rate and rhythm, normal S1 and S2, no murmurs, rubs or gallops, peripheral pulses normal and equal bilaterally. ABDOMEN: Soft, nontender, normoactive bowel sounds. No guarding, no rebound. No masses EXTREMITIES : Normal inspection, Normal range of motion, no edema. No clubbing or cyanosis. NEUROLOGICAL: Cranial nerves II through XII grossly intact. Normal speech, normal gait, no focal sensorimotor deficits SKIN: Warm, Dry, normal turgor, no rashes or lesions noted ED Treatment Course - LABORATORY CBC & Chemistry Diagram: 09/16/18 14:42 09/16/18 14:42 Medical Decision Making - Medical Decision Making 09/16/18 17:06 43 y/o F with hx of paroxysmal Afib s/p implantable loop recorder device in 2017 presenting with 4 days of chest palpitations/fluttering and 2 days of chest pressure associated with lethargy, lightheadedness, and dyspnea on exertion. -CBC, CMP, EKG, CXR -NS bolus 09/16/18 17:07 No significant findings on labs, EKG, CXR Patient still feels lightheaded Dr Ojeda was consulted and recommended admit for tele obs with ECHO in the AM Dr Loza accepted admission Awaiting bed 09/16/18 19:35 s/p 1L bolus lightheadedness has improved *DC/Admit/Observation/Transfer Diagnosis at time of Disposition: Chest pain Qualifiers: Chest pain type: unspecified Qualified Code(s): R07.9 - Chest pain, unspecified - Discharge Dispostion Condition at time of disposition: Stable Decision to Admit order: Yes - Referrals - Patient Instructions - Post Discharge Activity
[2018-09-16 15:16] LABS: BASO % 0.7 % (0-2.0); EOS % 1.6 % (0-4.5); HEMATOCRIT 35.4 % (32.4-45.2); HEMOGLOBIN 11.5 GM/dL (10.7-15.3); LYMPH % 42.5 % (8-40); MCH 26.6 pg (25.7-33.7); MCHC 32.6 g/dl (32.0-36.0); MEAN CELL VOLUME 81.5 fl (80-96); MEAN PLT VOLUME 7.3 fl (7.5-11.1); MONO % 8.5 % (3.8-10.2); NEUT % 46.7 % (42.8-82.8); PLATELET COUNT 491 K/MM3 (134-434); RBC 4.35 M/mm3 (3.60-5.2); RDW 15.3 % (11.6-15.6); WHITE BLOOD COUNT 8.5 K/mm3 (4.0-10.0)
[2018-09-16] MEDS ORDERED: SODIUM CHLORIDE 1,000 ML IV STA (15:38)
[2018-09-16 15:46] LABS: ALBUMIN 3.3 g/dl (3.4-5.0); BILIRUBIN,TOTAL 0.3 mg/dL (0.2-1); BLOOD UREA NITROGEN 14.8 mg/dL (7-18); CALCIUM 8.4 mg/dL (8.5-10.1); CREATININE 0.8 mg/dL (0.55-1.3); POTASSIUM 4.2 mmol/L (3.5-5.1); TOT PROT 7.2 g/dl (6.4-8.2)
--- NOTE | 2018-09-16 16:35 | PDOC ---
Documentation entered by Gregorio Nance SCRIBE, acting as scribe for Nataliia Franks MD. Nataliia Franks MD: This documentation has been prepared by the mahesheLee Ann Elijah, SCRIBE, under my direction and personally reviewed by me in its entirety. I confirm that the documentation accurately reflects all work, treatment, procedures, and medical decision making performed by me. Attending Attestation - Resident Resident Name: Cuate Mahan - ED Attending Attestation I have performed the following: I have examined & evaluated the patient, The case was reviewed & discussed with the resident, I agree w/resident's findings & plan, Exceptions are as noted - HPI HPI: 09/16/18 16:38 Patient is a 43 year old female with a significant past medical history of PAF who presents with palpitations lasting over x4 days. Patient has recently developed over the last day left sided chest pressure and associates Dyspnea on exertion and Lightheadedness. Her symptoms have all worsened today prompting her visit to the ED today. Allergies: Penicillins, Seafood PCP: Dr. Mariano - Physicial Exam PE: GENERAL: Awake, alert, and fully oriented, in no acute distress. Obese HEAD: No signs of trauma EYES: PERRLA, EOMI, sclera anicteric, conjunctiva clear ENT: Auricles normal inspection, hearing grossly normal, nares patent, oropharynx clear without exudates. Moist mucosa NECK: Normal ROM, supple, no lymphadenopathy, JVD, or masses LUNGS: Breath sounds equal, clear to auscultation bilaterally. No wheezes, and no crackles HEART: Regular rate and rhythm, normal S1 and S2, no murmurs, rubs or gallops ABDOMEN: Soft, nontender, normoactive bowel sounds. No guarding, no rebound. No masses EXTREMITIES: Normal range of motion, no edema. No clubbing or cyanosis. No cords, erythema, or tenderness NEUROLOGICAL: Cranial nerves II through XII grossly intact. Normal speech, normal gait. Motor and sensation intact SKIN: Warm, dry, normal turgor, no rashes or lesions noted. - Medical Decision Making Pt with L shoulder pain, lightheadedness, chest pressure. EKG with no acute findings. Case d/w cardiology Dr. Ojeda, recommended tele admit. Heart Score/ECG Review - History History: Moderately suspicious - Electrocardiogram EKG: Normal - Age Age: </= 45 - Risk Factors Risk Factors Heart Score: Yes Hx Obesity Based on the list above the patient has:: 1-2 risk factors - Troponin Troponin: </= normal limit - Score Heart Score - Total: 2
[2018-09-16 21:01] LABS: COCAINE, UR NEGATIVE ng/ml (CUTOFF=300); METHADONE, UR NEGATIVE ng/ml (CUTOFF=300); OPIATES, URI NEGATIVE ng/ml (CUTOFF=300); PHENCYCLIDINE,URINE NEGATIVE ng/ml (CUTOFF=25); URINE AMPHETAMINES NEGATIVE ng/ml (CUTOFF=500); URINE BARBITURATES NEGATIVE ng/ml (CUTOFF=200)
[2018-09-16 21:02] LABS: URINE BENZODIAZEPINES NEGATIVE ng/ml (CUTOFF=200)
[2018-09-16] MEDS ORDERED: ASPIRIN COATED 81 MG TABLET.EC ONE (21:59)
[2018-09-16] MEDS: ASPIRIN COATED 81 MG TABLET.EC PO SCH (22:04)
[2018-09-16 23:25] VITALS: BMI 38.3
[2018-09-17 06:40] LABS: BASO % 0.8 % (0-2.0); EOS % 2.8 % (0-4.5); HEMATOCRIT 33.6 % (32.4-45.2); HEMOGLOBIN 11.2 GM/dL (10.7-15.3); LYMPH % 51.3 % (8-40); MCH 27.1 pg (25.7-33.7); MCHC 33.3 g/dl (32.0-36.0); MEAN CELL VOLUME 81.4 fl (80-96); MEAN PLT VOLUME 6.9 fl (7.5-11.1); MONO % 8.7 % (3.8-10.2); NEUT % 36.4 % (42.8-82.8); PLATELET COUNT 442 K/MM3 (134-434); RBC 4.13 M/mm3 (3.60-5.2); RDW 14.8 % (11.6-15.6); WHITE BLOOD COUNT 7.2 K/mm3 (4.0-10.0)
[2018-09-17 06:41] LABS: ALBUMIN 2.8 g/dl (3.4-5.0); BILIRUBIN,TOTAL 0.5 mg/dL (0.2-1); BLOOD UREA NITROGEN 12.5 mg/dL (7-18); CREATININE 0.8 mg/dL (0.55-1.3); POTASSIUM 4.1 mmol/L (3.5-5.1); TOT PROT 6.5 g/dl (6.4-8.2)
[2018-09-17] MEDS ORDERED: PT OWN MED DRAWER 7, Y5N ONE (09:00)
--- NOTE | 2018-09-17 09:29 | PN ---
Progress Note (short form) - Note Progress Note: Patient has a pertinent cardiac hx of PAF and has a [employer] loop recorder in place. Dr. Samuels's full consult to follow.
[2018-09-17] MEDS ORDERED: PARoxetine HCL 30 MG TABLET PO SCH (10:00)
[2018-09-17] MEDS: ASPIRIN COATED 81 MG TABLET.EC PO SCH (10:48)
[2018-09-17] MEDS ORDERED: PAROXETINE HCL 20 MG, PAROXETINE HCL 10 MG PO SCH (11:15)
--- NOTE | 2018-09-17 11:27 | CON.CARD ---
Consult Consult Specialty:: cardiology Referred by:: Medicine Reason for Consultation:: chest pressure - History of Present Illness Chief Complaint: chest pressure, palpitations History of Present Illness: 43F h/o afib s/p loop recorder placed 2017 p/w palpitations since Saturday and two days of chest pressure. Intermittent episodes lasting a few minutes of fluttering, she ignored these but then they did not resolve and she felt chest pressure while at rest yesterday. No exertional symptoms. Sees Dr. Ojeda for cardio, however has not been seen in over a year. Reviewed office note from 04/2017, notes similar presentation. Also had lightheadedness, nausea and felt tired. This morning while echo done when probe was pressed to her chest it reproduced her chest pressure that she felt yesterday. - Past Medical History Cardio/Vascular: Yes: AFIB (paroxysmal) Gastrointestinal: Yes: GERD (hiatal hernia) ...LMP: 10/12/16 Psych: Yes: Depression - Past Surgical History Past Surgical History: Yes: Cholecystectomy, - Alcohol/Substance Use Hx Alcohol Use: No - Smoking History Smoking history: Never smoked Have you smoked in the past 12 months: No Aproximately how many cigarettes per day: 0 - Social History ADL: Independent History of Recent Travel: No Home Medications - Allergies Allergies/Adverse Reactions: Allergies Allergy/AdvReac Type Severity Reaction Status Date / Time Penicillins Allergy Intermediate Rash Verified 09/16/18 13:56 seafood Allergy Intermediate Hives Uncoded 09/16/18 13:56 - Home Medications Home Medications: Ambulatory Orders Paroxetine HCl 30 mg PO DAILY 02/14/15 Family Disease History - Family Disease History Family Disease History: Heart Disease: Father (CAD and AF) Review of Systems - Review of Systems Constitutional: reports: No Symptoms Eyes: reports: No Symptoms HENT: reports: No Symptoms Neck: reports: No Symptoms Cardiovascular: reports: No Symptoms Respiratory: reports: No Symptoms Gastrointestinal: reports: No Symptoms Genitourinary: reports: No Symptoms Musculoskeletal: reports: No Symptoms Integumentary: reports: No Symptoms Neurological: reports: No Symptoms Endocrine: reports: No Symptoms Hematology/Lymphatic: reports: No Symptoms Psychiatric: reports: No Symptoms Vital Signs: Vital Signs Temperature 98 F 09/17/18 09:00 Pulse Rate 74 09/17/18 09:00 Respiratory Rate 18 09/17/18 09:00 Blood Pressure 116/56 L 09/17/18 09:00 O2 Sat by Pulse Oximetry (%) 98 09/17/18 09:00 Constitutional: Yes: Well Nourished, No Distress, Calm Eyes: Yes: Conjunctiva Clear, EOM Intact HENT: Yes: Atraumatic, Normocephalic Neck: Yes: Supple, Trachea Midline Respiratory: Yes: Regular, CTA Bilaterally Gastrointestinal: Yes: Normal Bowel Sounds, Soft Cardiovascular: Yes: Regular Rate and Rhythm JVD: No Carotid Bruit: No Heart Sounds: Yes: S1, S2 Musculoskeletal: No: Back Pain Extremities: No: Cold Edema: No Peripheral Pulses WNL: Yes Peripheral Pulses: 2+ Left Doralis Pedis, 2+ Right Dorsalis Pedis Integumentary: No: Jaundice Neurological: Yes: Alert, Oriented Psychiatric: No: Agitated - Other Data Labs, Other Data: CBC, BMP 09/17/18 06:00 09/17/18 06:00 Troponin, BNP 09/16/18 09/16/18 14:42 22:30 Troponin I < 0.02 < 0.02 Troponin, BNP 09/16/18 09/16/18 14:42 22:30 Troponin I < 0.02 < 0.02 Assessment/Plan echo 2017 nl LV/RV function, mild MR mibi 2017 no ischemia EKG: artifact, sinus, nl intervals, no ischemic changes CXR: no acute process tele: sinus chest pain, palps - similar presentation to prior - echo, mibi 2017 were unremarkable - EKG here no ischemia, trop neg x 2 - repeat echo pending - reproducible component suggests MSK - if echo benign findings, stable for dc for outpatient follow up with Dr. Rusty beatty [facility] 2 = 1 - continue aspriin - has not tolerated beta jessie in the past, in sinus here - s/p ILR - reportedly no events but has not followed up in over a year, advised to follow up for monitoring
--- NOTE | 2018-09-17 13:07 | ECHO ---
Name: HYACINTH BARCENAS Exam:Adult Echocardiogram Study Date: 09/17/2018 10:15 AM Age: 43 yrs Reason For Study: chest pain Height: 67 in Weight: 225 lb BSA: 2.1 m2 MMode/2D Measurements & Calculations IVSd: 0.80 cm Ao root diam: 3.3 cm LVIDd: 5.4 cm LA dimension: 3.6 cm LVIDs: 3.5 cm ACS: 2.2 cm LVPWd: 0.81 cm IVSs: 1.1 cm LVPWs: 1.3 cm EDV(Teich): 143.7 ml ESV(Teich): 51.1 ml Doppler Measurements & Calculations MV E max bela: 65.9 cm/sec Ao V2 max: 117.3 cm/sec MV A max bela: 55.8 cm/sec Ao max P.5 mmHg MV E/A: 1.2 TR max bela: 214.9 cm/sec PI end-d bela: 97.7 cm/sec TR max P.5 mmHg Med Peak E' Bela: 9.4 cm/sec Med E/e': 7.0 Lat Peak E' Bela: 11.8 cm/sec Lat E/e': 5.6 Procedure A two-dimensional transthoracic echocardiogram with color flow and Doppler was performed. Left Ventricle The left ventricular size, thickness and function are normal. The left ventricular ejection fraction is normal. Left Ventricular Filling pattern is normal for age. There are regional wall motion abnormalit ies as specified. Right Ventricle The right ventricle is normal in size and function. Atria Normal left and right atrial size and function. Mitral Valve There is mild mitral valve thickening. Highly mobile mass consistent with a torn or redundant chordae seen. There is no mitral valve stenosis. There is trace mitral regurgitation. Tricuspid Valve The tricuspid valve is normal in structure and function. There is no tricuspid stenosis. There is Tra ce to mild tricuspid regurgitation. Right ventricular systolic pressure is normal. Aortic Valve The aortic valve is normal in structure and function. No hemodynamically significant valvular aortic stenosis. No aortic regurgitation is present. Pulmonic Valve The pulmonic valve is not well visualized. There is no pulmonic valvular stenosis. Mild pulmonic valv ular regurgitation. Great Vessels The aortic root is normal size. Pericardium/Pleura There is no pericardial effusion. Interpretation Summary The left ventricular size, thickness and function are normal The left ventricular ejection fraction is normal. There are regional wall motion abnormalities as specified. There is mild mitral valve thickening. Highly mobile mass consistent with a torn or redundant chordae seen. There is trace mitral regurgitation. There is Trace to mild tricuspid regurgitation. Right ventricular systolic pressure is normal. Left Ventricular Filling pattern is normal for age. MD Hamilton Patel 09/17/2018 01:06 PM
--- NOTE | 2018-09-17 15:54 | HP ---
Admitting History and Physical - Past Medical History Cardiovascular: Yes: AFIB (paroxysmal) Gastrointestinal: Yes: GERD (hiatal hernia) ...LMP: 10/12/16 Psych: Yes: Depression - Past Surgical History Past Surgical History: Yes: Cholecystectomy, - Smoking History Smoking history: Never smoked Have you smoked in the past 12 months: No Aproximately how many cigarettes per day: 0 - Alcohol/Substance Use Hx Alcohol Use: No - Social History ADL: Independent History of Recent Travel: No Home Medications - Allergies Allergies/Adverse Reactions: Allergies Allergy/AdvReac Type Severity Reaction Status Date / Time Penicillins Allergy Intermediate Rash Verified 09/16/18 13:56 seafood Allergy Intermediate Hives Uncoded 09/16/18 13:56 - Home Medications Home Medications: Ambulatory Orders Paroxetine HCl 30 mg PO DAILY 02/14/15 Family Disease History - Family Disease History Family Disease History: Heart Disease: Father (CAD and AF) Physical Examination Vital Signs: Vital Signs Temperature 98.3 F 09/17/18 14:53 Pulse Rate 66 09/17/18 14:53 Respiratory Rate 18 09/17/18 14:53 Blood Pressure 142/66 09/17/18 14:53 O2 Sat by Pulse Oximetry (%) 98 09/17/18 09:00 Labs: CBC, BMP 09/17/18 06:00 09/17/18 06:00
[2018-09-17 17:33] VITALS: BP 136/74; PULSE 79; TEMP 98.7
== END 2018-09-17 18:52 | disposition home or self-care (01) | DRG 201 ==
LOC: JER 13:49 → JERBED 17:12 → OBSVTOIN 21:42 → J4W 23:33
PROVIDERS: ADMIT Internal Medicine; ATTEND Internal Medicine
DX: I48.0 Paroxysmal atrial fibrillation (principal); Z68.41 Body mass index [BMI] 40.0-44.9, adult; E66.9 Obesity, unspecified; R07.9 Chest pain, unspecified; R00.2 Palpitations; K21.9 Gastro-esophageal reflux disease without esophagitis
CPT/HCPCS: 36415; 71045-TC-FY; 80053; 80307; 82550; 84484; 85025; 93005; 93010; 93306-TC; 99285-25; G0378; J7030

== ENCOUNTER 2021-01-11 16:55 | Inpatient (IN) | payer OTHER ==
[2021-01-11] MEDS ORDERED: ALBUTEROL SO4 2.5/IPRATROPIUM 0.5 INH SOL 3 ML VIAL.NEB. NEB ONE ×4 (18:32→21:01)
[2021-01-11] MEDS ORDERED: DEXAMETHASONE SOD PHOSPHATE 4 MG/1 ML VIAL IVPUSH ONE (19:41)
[2021-01-11] MEDS ORDERED: DEXAMETHASONE SOD PHOSPHATE 10 MG/1 ML VIAL ONE (19:54)
[2021-01-11] MEDS ORDERED: guaiFENesin 200 MG/10 ML 10 ML UNIT-DOSE CUPS PO ONE (20:01)
[2021-01-11] MEDS ORDERED: ACETAMINOPHEN 1000 MG/100 ML VIAL IVPB ONE (20:01)
[2021-01-11] MEDS ORDERED: AZITHROMYCIN IVPB 500 MG in DEXTROSE 5%-WATER - 250 ML IVPB ONE (20:13)
[2021-01-11 20:47] LABS: CHLORIDE 104 mmol/L (98-107); SODIUM 136 mmol/L (136-145)
[2021-01-11 20:51] LABS: CALCIUM 8.2 mg/dL (8.5-10.1)
[2021-01-11 20:52] LABS: ALBUMIN 2.8 g/dl (3.4-5.0); ANION GAP 8 MMOL/L (8-16); BLOOD UREA NITROGEN 13.6 mg/dL (7-18); CO2 25 mmol/L (21-32); GLUCOSE,RANDOM 107 mg/dL (74-106)
[2021-01-11 20:55] LABS: CREATININE 0.8 mg/dL (0.55-1.3); SGOT/AST 41 U/L (15-37); SGPT/ALT 27 U/L (13-61)
[2021-01-11 20:56] LABS: BILIRUBIN,TOTAL 0.3 mg/dL (0.2-1); TOT PROT 6.9 g/dl (6.4-8.2)
[2021-01-11] MEDS ORDERED: LACTATED RINGERS SOLUTION 1000 ML INFUS.BAG IV ONE (20:56)
[2021-01-11 20:57] LABS: ALK PHOS 64 U/L (45-117)
[2021-01-11 20:58] LABS: N-TERMINAL BNP 39.7 pg/ml (5-125)
[2021-01-11] MEDS ORDERED: CEFTRIAXONE 1 GM/50 ML BAG ONE (21:01)
[2021-01-11] MEDS ORDERED: guaiFENesin/D-METHORPHAN HB 10 ML UNIT-DOSE CUPS ONE (21:01)
[2021-01-11] MEDS ORDERED: ACETAMINOPHEN INJECTION 100 ML IVPB ONE (21:01)
[2021-01-11] MEDS ORDERED: AZITHROMYCIN IVPB 500 MG/250 ML BAG IVPB ONE (21:01)
[2021-01-11 21:03] LABS: BASO % 0.3 % (0-2.0); EOS % 0.2 % (0-4.5); HEMATOCRIT 31.2 % (32.4-45.2); HEMOGLOBIN 9.9 GM/dL (10.7-15.3); MCH 21.7 pg (25.7-33.7); MCHC 31.8 g/dl (32.0-36.0); MEAN CELL VOLUME 68.1 fl (80-96); MEAN PLT VOLUME 6.9 fl (7.5-11.1); MONO % 6.5 % (3.8-10.2); PLATELET COUNT 336 10^3/uL (134-434); RBC 4.59 M/mm3 (3.60-5.2); WHITE BLOOD COUNT 4.3 K/mm3 (4.0-10.0)
[2021-01-11 21:07] LABS: LDH 451 U/L (84-246)
[2021-01-11 21:20] LABS: CALCIUM 8.1 mg/dL (8.5-10.1)
[2021-01-11 21:21] LABS: ALBUMIN 2.6 g/dl (3.4-5.0); BLOOD UREA NITROGEN 12.5 mg/dL (7-18)
[2021-01-11 21:24] LABS: CREATININE 0.8 mg/dL (0.55-1.3)
[2021-01-11 21:26] LABS: BILIRUBIN,TOTAL 0.3 mg/dL (0.2-1)
[2021-01-11 22:35] LABS: ANISOCYTOSIS 1+; MACROCYTOSIS 1+; PLATELET ESTIMATE NORMAL
[2021-01-12] MEDS ORDERED: DEXAMETHASONE SOD PHOSPHATE 4 MG/1 ML VIAL ONE ×2 (03:04→09:08)
[2021-01-12] MEDS: DEXAMETHASONE SOD PHOSPHATE 4 MG/1 ML VIAL IVPUSH SCH ×2 (03:09→09:10)
[2021-01-12 07:25] LABS: BASO % 0.2 % (0-2.0); HEMATOCRIT 32.1 % (32.4-45.2); HEMOGLOBIN 10.3 GM/dL (10.7-15.3); LYMPH % 25.5 % (8-40); MCH 22.2 pg (25.7-33.7); MCHC 32.1 g/dl (32.0-36.0); MEAN CELL VOLUME 69.3 fl (80-96); MEAN PLT VOLUME 7.3 fl (7.5-11.1); MONO % 3.1 % (3.8-10.2); NEUT % 71.2 % (42.8-82.8); PLATELET COUNT 348 10^3/uL (134-434); RBC 4.63 M/mm3 (3.60-5.2); RDW 19.1 % (11.6-15.6); WHITE BLOOD COUNT 2.8 K/mm3 (4.0-10.0)
[2021-01-12 07:42] LABS: ALBUMIN 2.8 g/dl (3.4-5.0); BLOOD UREA NITROGEN 8.5 mg/dL (7-18); CALCIUM 8.4 mg/dL (8.5-10.1)
[2021-01-12 07:45] LABS: CREATININE 0.8 mg/dL (0.55-1.3)
[2021-01-12 07:47] LABS: BILIRUBIN,TOTAL 0.1 mg/dL (0.2-1); TOT PROT 7.2 g/dl (6.4-8.2)
[2021-01-12] MEDS ORDERED: CHOLECALCIFEROL (VIT D3) 5000 UNITS (125 MCG) CAP PO SCH (10:00)
[2021-01-12] MEDS ORDERED: PARoxetine HCL 30 MG TABLET PO SCH (10:00)
[2021-01-12] MEDS ORDERED: PAROXETINE HCL 20 MG, PAROXETINE HCL 10 MG PO SCH (10:00)
[2021-01-12] MEDS ORDERED: AZITHROMYCIN IVPB 500 MG/250 ML BAG IVPB SCH (10:00)
[2021-01-12] MEDS ORDERED: ZINC SULFATE 220 MG CAPSULE (FP) ONE (10:17)
[2021-01-12] MEDS ORDERED: CHOLECALCIFEROL (VIT D3) 1,000 UNIT (25 MCG) TABLET ONE (10:17)
[2021-01-12] MEDS ORDERED: ASCORBIC ACID 500 MG TABLET (FP) ONE (10:17)
[2021-01-12] MEDS ORDERED: APIXABAN 5 MG TABLET ONE (10:17)
[2021-01-12] MEDS ORDERED: AZITHROMYCIN IVPB 500 MG/250 ML BAG IVPB ONE (10:18)
[2021-01-12] MEDS ORDERED: PARoxetine HCL 10 MG TABLET ONE (10:18)
[2021-01-12] MEDS: ASCORBIC ACID 500 MG TABLET (FP) PO SCH ×2 (10:30→21:38)
[2021-01-12] MEDS: ZINC SULFATE 220 MG CAPSULE (FP) PO SCH ×2 (10:30→21:38)
[2021-01-12] MEDS: APIXABAN 5 MG TABLET PO SCH ×2 (10:30→21:38)
[2021-01-12] MEDS ORDERED: PT OWN MED DRAWER 7, Y5N ONE (13:08)
[2021-01-12] MEDS: BUDESONIDE/FORMETEROL FUMARATE 160/4.5 mcg INHALER IH SCH ×2 (13:30→23:18)
[2021-01-12] MEDS ORDERED: REMDESIVIR 200 MG in SODIUM CHLORIDE 250 ML IVPB ONE (14:00)
[2021-01-12] MEDS: ALBUTEROL SO4 HFA INHALER IH SCH ×2 (14:24→21:38)
[2021-01-13] MEDS ORDERED: PAROXETINE HCL 20 MG, PAROXETINE HCL 10 MG PO SCH (10:00)
[2021-01-13] MEDS ORDERED: DEXAMETHASONE SOD PHOSPHATE 4 MG/1 ML VIAL IVPUSH SCH (10:00)
[2021-01-13] MEDS ORDERED: PT OWN MED DRAWER 7, Y5N ONE (11:13)
[2021-01-13] MEDS: ALBUTEROL SO4 HFA INHALER IH SCH ×4 (11:25→21:27)
[2021-01-13] MEDS: DEXAMETHASONE SOD PHOSPHATE 4 MG/1 ML VIAL IVPUSH SCH (11:26)
[2021-01-13] MEDS: ZINC SULFATE 220 MG CAPSULE (FP) PO SCH ×2 (11:26→21:26)
[2021-01-13] MEDS: ASCORBIC ACID 500 MG TABLET (FP) PO SCH ×2 (11:26→21:26)
[2021-01-13] MEDS: CHOLECALCIFEROL (VIT D3) 5000 UNITS (125 MCG) CAP PO SCH (11:26)
[2021-01-13] MEDS: AZITHROMYCIN IVPB 500 MG/250 ML BAG IVPB SCH (11:27)
[2021-01-13] MEDS: APIXABAN 5 MG TABLET PO SCH ×2 (11:27→21:26)
[2021-01-13] MEDS: BUDESONIDE/FORMETEROL FUMARATE 160/4.5 mcg INHALER IH SCH ×2 (11:29→21:27)
[2021-01-13] MEDS: REMDESIVIR 100 MG in SODIUM CHLORIDE 250 ML IVPB SCH (13:51)
[2021-01-13] MEDS ORDERED: REMDESIVIR 100 MG in SODIUM CHLORIDE 250 ML IVPB SCH (14:00)
[2021-01-14 08:45] LABS: BASO % 0.2 % (0-2.0); EOS % 0.1 % (0-4.5); HEMATOCRIT 32.1 % (32.4-45.2); HEMOGLOBIN 10.3 GM/dL (10.7-15.3); MCH 22.2 pg (25.7-33.7); MEAN CELL VOLUME 69.4 fl (80-96); MEAN PLT VOLUME 7.5 fl (7.5-11.1); MONO % 12.4 % (3.8-10.2); NEUT % 55.3 % (42.8-82.8); PLATELET COUNT 419 10^3/uL (134-434); RBC 4.63 M/mm3 (3.60-5.2); RDW 19.3 % (11.6-15.6)
[2021-01-14] MEDS ORDERED: PT OWN MED DRAWER 7, Y5N ONE ×2 (09:04→14:28)
[2021-01-14 09:10] LABS: BLOOD UREA NITROGEN 15.2 mg/dL (7-18)
[2021-01-14] MEDS: APIXABAN 5 MG TABLET PO SCH ×2 (09:10→21:29)
[2021-01-14] MEDS: CHOLECALCIFEROL (VIT D3) 5000 UNITS (125 MCG) CAP PO SCH (09:10)
[2021-01-14] MEDS: ZINC SULFATE 220 MG CAPSULE (FP) PO SCH ×2 (09:10→21:29)
[2021-01-14] MEDS: PARoxetine HCL 20 MG TABLET PO SCH (09:10)
[2021-01-14] MEDS: PANTOPRAZOLE 40 MG TABLET PO SCH (09:10)
[2021-01-14] MEDS: DEXAMETHASONE SOD PHOSPHATE 4 MG/1 ML VIAL IVPUSH SCH (09:10)
[2021-01-14] MEDS: ASCORBIC ACID 500 MG TABLET (FP) PO SCH ×2 (09:11→21:29)
[2021-01-14] MEDS: BUDESONIDE/FORMETEROL FUMARATE 160/4.5 mcg INHALER IH SCH ×2 (09:11→21:29)
[2021-01-14] MEDS: AZITHROMYCIN IVPB 500 MG/250 ML BAG IVPB SCH (09:11)
[2021-01-14 09:13] LABS: ALBUMIN 2.5 g/dl (3.4-5.0); CALCIUM 8.2 mg/dL (8.5-10.1); CREATININE 0.6 mg/dL (0.55-1.3)
[2021-01-14 09:15] LABS: BILIRUBIN,TOTAL 0.6 mg/dL (0.2-1)
[2021-01-14 09:18] LABS: TOT PROT 6.5 g/dl (6.4-8.2)
[2021-01-14] MEDS: REMDESIVIR 100 MG in SODIUM CHLORIDE 250 ML IVPB SCH (14:42)
[2021-01-14] MEDS: MAG HYDROX/AL HYDROX/SIMETH 30 ML UNIT-DOSE CUP PO PRN ×2 (16:50→23:06)
[2021-01-14 18:49] VITALS: BMI 46.6
[2021-01-14] MEDS: ALBUTEROL SO4 HFA INHALER IH SCH (21:30)
[2021-01-15 08:09] LABS: BASO % 0.3 % (0-2.0); HEMATOCRIT 34.1 % (32.4-45.2); HEMOGLOBIN 10.9 GM/dL (10.7-15.3); LYMPH % 35.8 % (8-40); MCHC 31.9 g/dl (32.0-36.0); MEAN CELL VOLUME 69.1 fl (80-96); MEAN PLT VOLUME 7.2 fl (7.5-11.1); MONO % 12.8 % (3.8-10.2); NEUT % 51.1 % (42.8-82.8); PLATELET COUNT 470 10^3/uL (134-434); RBC 4.94 M/mm3 (3.60-5.2); RDW 18.9 % (11.6-15.6); WHITE BLOOD COUNT 8.1 K/mm3 (4.0-10.0)
[2021-01-15 08:40] LABS: CALCIUM 8.1 mg/dL (8.5-10.1)
[2021-01-15 08:41] LABS: ALBUMIN 2.6 g/dl (3.4-5.0); BLOOD UREA NITROGEN 17.8 mg/dL (7-18)
[2021-01-15 08:42] LABS: BILIRUBIN,TOTAL 0.2 mg/dL (0.2-1)
[2021-01-15 08:43] LABS: TOT PROT 6.7 g/dl (6.4-8.2)
[2021-01-15 08:44] LABS: CREATININE 0.7 mg/dL (0.55-1.3)
[2021-01-15] MEDS: AZITHROMYCIN IVPB 500 MG/250 ML BAG IVPB SCH (10:22)
[2021-01-15] MEDS: ZINC SULFATE 220 MG CAPSULE (FP) PO SCH ×2 (10:23→21:15)
[2021-01-15] MEDS: PARoxetine HCL 20 MG TABLET PO SCH (10:23)
[2021-01-15] MEDS: CHOLECALCIFEROL (VIT D3) 5000 UNITS (125 MCG) CAP PO SCH (10:23)
[2021-01-15] MEDS: BUDESONIDE/FORMETEROL FUMARATE 160/4.5 mcg INHALER IH SCH ×2 (10:23→21:16)
[2021-01-15] MEDS: ASCORBIC ACID 500 MG TABLET (FP) PO SCH ×2 (10:23→21:15)
[2021-01-15] MEDS: APIXABAN 5 MG TABLET PO SCH ×2 (10:23→21:15)
[2021-01-15] MEDS: PANTOPRAZOLE 40 MG TABLET PO SCH (10:23)
[2021-01-15] MEDS: DEXAMETHASONE SOD PHOSPHATE 4 MG/1 ML VIAL IVPUSH SCH (10:23)
[2021-01-15 10:53] LABS: ANISOCYTOSIS 2+; MACROCYTOSIS 0; OVALOCYTE 1+; PLATELET ESTIMATE NORMAL
[2021-01-15] MEDS: REMDESIVIR 100 MG in SODIUM CHLORIDE 250 ML IVPB SCH (14:49)
[2021-01-15] MEDS: ALBUTEROL SO4 HFA INHALER IH SCH (21:16)
[2021-01-16] MEDS: ALBUTEROL SO4 HFA INHALER IH SCH ×4 (08:43→21:47)
[2021-01-16] MEDS ORDERED: PT OWN MED DRAWER 7, Y5N ONE (09:38)
[2021-01-16] MEDS: ZINC SULFATE 220 MG CAPSULE (FP) PO SCH ×2 (09:42→21:48)
[2021-01-16] MEDS: APIXABAN 5 MG TABLET PO SCH ×2 (09:43→21:48)
[2021-01-16] MEDS: PANTOPRAZOLE 40 MG TABLET PO SCH (09:43)
[2021-01-16] MEDS: PARoxetine HCL 20 MG TABLET PO SCH (09:43)
[2021-01-16] MEDS: CHOLECALCIFEROL (VIT D3) 5000 UNITS (125 MCG) CAP PO SCH (09:44)
[2021-01-16] MEDS: BUDESONIDE/FORMETEROL FUMARATE 160/4.5 mcg INHALER IH SCH ×2 (09:44→21:47)
[2021-01-16] MEDS: DEXAMETHASONE SOD PHOSPHATE 4 MG/1 ML VIAL IVPUSH SCH (09:44)
[2021-01-16] MEDS: ASCORBIC ACID 500 MG TABLET (FP) PO SCH ×2 (09:44→21:48)
[2021-01-16] MEDS: AZITHROMYCIN IVPB 500 MG/250 ML BAG IVPB SCH (09:46)
[2021-01-16] MEDS: REMDESIVIR 100 MG in SODIUM CHLORIDE 250 ML IVPB SCH (14:07)
[2021-01-16] MEDS: MAG HYDROX/AL HYDROX/SIMETH 30 ML UNIT-DOSE CUP PO PRN (21:49)
[2021-01-17] MEDS: DEXAMETHASONE SOD PHOSPHATE 4 MG/1 ML VIAL IVPUSH SCH (09:17)
[2021-01-17] MEDS: APIXABAN 5 MG TABLET PO SCH (09:18)
[2021-01-17] MEDS: ALBUTEROL SO4 HFA INHALER IH SCH (09:18)
[2021-01-17] MEDS: ZINC SULFATE 220 MG CAPSULE (FP) PO SCH (09:18)
[2021-01-17] MEDS: AZITHROMYCIN IVPB 500 MG/250 ML BAG IVPB SCH (09:18)
[2021-01-17] MEDS: PANTOPRAZOLE 40 MG TABLET PO SCH (09:18)
[2021-01-17] MEDS: PARoxetine HCL 20 MG TABLET PO SCH (09:18)
[2021-01-17] MEDS: BUDESONIDE/FORMETEROL FUMARATE 160/4.5 mcg INHALER IH SCH (09:18)
[2021-01-17] MEDS: ASCORBIC ACID 500 MG TABLET (FP) PO SCH (09:19)
[2021-01-17] MEDS ORDERED: PT OWN MED DRAWER 7, Y5N ONE (09:21)
[2021-01-17] MEDS: CHOLECALCIFEROL (VIT D3) 5000 UNITS (125 MCG) CAP PO SCH (09:21)
[2021-01-17 14:09] VITALS: TEMP 97.4
[2021-01-17 15:44] VITALS: BP 130/78; PULSE 88
== END 2021-01-17 16:52 | disposition home or self-care (01) | DRG 137 ==
LOC: JER 16:55 → JERBED 22:04 → J6S 01-12 17:06
PROVIDERS: ADMIT Internal Medicine; ATTEND Internal Medicine
PROC: XW033E5 Introduction of Remdesivir Anti-infective into Peripheral Vein, Percutaneous Approach, New Technology Group 5 (ICD-10-PCS; principal; 2021-01-11)
DX: U07.1 COVID-19 (principal); J12.82 Pneumonia due to coronavirus disease 2019; Z68.42 Body mass index [BMI] 45.0-49.9, adult; E66.01 Morbid (severe) obesity due to excess calories; K21.9 Gastro-esophageal reflux disease without esophagitis; R06.09 Other forms of dyspnea; R09.02 Hypoxemia; D72.819 Decreased white blood cell count, unspecified; F32.A Depression, unspecified
CPT/HCPCS: 36415; 71045-TC-FY; 71275-TC; 80053; 82550; 82728; 83615; 83735; 83880; 84484; 84703; 85025; 85379; 86140; 87040; 87804; 93005; 93010; 94761; 99285-25; C9399; C9803; J0131; U0003; U0005